=== PATIENT | female | born 1980 | race Caucasian/White ===

== ENCOUNTER 2018-04-22 10:16 | Day surgery (SDC) | payer OTHER ==
[~2018-04-22 10:16] MED LIST: LIDOCAINE 2% (SDV) 5 ML INJ
[2018-04-22 10:58] LABS: ADD MAN DIFF? NO
[2018-04-22 11:01] LABS: WHITE BLOOD COUNT 9.4 10^3/ul (4.8-10.8)
[2018-04-22 11:01] LABS: BASOPHILS % 0.3 % (0.0-2.0); EOSINOPHILS # 0.1 10^3/ul (0.0-0.5); EOSINOPHILS % 0.7 % (0.0-7.0); HEMATOCRIT 39.8 % (37.0-47.0); HEMOGLOBIN 13.1 g/dl (12.0-16.0); LYMPHOCYTES # 2.2 10^3/ul (0.8-2.9); LYMPHOCYTES % 23.8 % (15.0-51.0); MEAN CORPUSCULAR HEMOGLOBIN 28.1 pg (29.0-33.0); MEAN CORPUSCULAR HGB CONC 32.9 g/dl (32.0-37.0); MEAN CORPUSCULAR VOLUME 85.4 fl (82.0-101.0); MEAN PLATELET VOLUME 10.8 fl (7.4-10.4); MONOCYTE # 0.7 10^3/ul (0.3-0.9); MONOCYTES % 7.5 % (0.0-11.0); NEUTROPHIL # 6.3 10^3/ul (1.6-7.5); NEUTROPHILS % 67.4 % (39.0-77.0); PLATELET COUNT 293 10^3/UL (140-415); RED BLOOD COUNT 4.66 10^6/ul (4.20-5.40); RED CELL DISTRIBUTION WIDTH 13.2 % (11.5-14.5)
[2018-04-22 11:05] LABS: ADD UMIC NO; UR ASCORBIC ACID NEGATIVE (NEGATIVE); UR BACTERIA FEW /HPF (NONE SEEN); UR BILIRUBIN (Dip) NEGATIVE (NEGATIVE); UR BLOOD (Dip) NEGATIVE (NEGATIVE); UR CLARITY SLIGHTLY CLOUDY (CLEAR); UR COLOR YELLOW (YELLOW); UR GLUCOSE (Dip) NEGATIVE (NEGATIVE); UR KETONES (Dip) NEGATIVE (NEGATIVE); UR LEUKOCYTE ESTERASE (Dip) NEGATIVE Leu/ul (NEGATIVE); UR MUCUS FEW /HPF (NONE SEEN); UR NITRITE (Dip) NEGATIVE (NEGATIVE); UR RBC 1 /HPF (0-5); UR SPECIFIC GRAVITY (Dip) 1.015 (1.003-1.030); UR SQUAMOUS EPITHELIAL CELL FEW /HPF (FEW); UR TOTAL PROTEIN (Dip) NEGATIVE (NEGATIVE); UR UROBILINOGEN (Dip) NEGATIVE (NEGATIVE); UR WBC 1 /HPF (0-5)
[2018-04-22 11:19] LABS: INR 0.92; PROTIME 12.4 Sec (11.9-14.9)
[2018-04-22 11:20] LABS: ALANINE AMINOTRANSFERASE 43 IU/L (13-69); ALBUMIN 3.5 g/dl (3.3-4.9); ALBUMIN/GLOBULIN RATIO 0.89; ALKALINE PHOSPHATASE 109 IU/L (42-121); ANION GAP 11 (8-16); ASPARTATE AMINO TRANSFERASE 29 IU/L (15-46); BILIRUBIN,INDIRECT 1.4 mg/dl (0-1.1); BILIRUBIN,TOTAL 1.4 mg/dl (0.2-1.3); BLOOD UREA NITROGEN 9 mg/dl (7-20); CALCIUM 8.8 mg/dl (8.4-10.2); CARBON DIOXIDE 24 mmol/L (21-31); CHLORIDE 108 mmol/L (97-110); CREATININE 0.54 mg/dl (0.44-1.00); GLUCOSE 86 mg/dl (70-220); PARTIAL THROMBOPLASTIN TIME 28.7 Sec (23.0-35.0); POTASSIUM 3.9 mmol/L (3.5-5.1); SODIUM 139 mmol/L (135-144); TOTAL PROTEIN 7.4 g/dl (6.1-8.1)
[2018-04-22] MEDS ORDERED: PROPOFOL 100 ML (13:02)
[2018-04-22] MEDS ORDERED: ONDANSETRON 4 MG INJ (13:02)
[2018-04-22] MEDS ORDERED: DEXAMETHASONE 4 MG/ML 1 ML INJ (13:02)
[2018-04-22] MEDS: BUPIVACAINE 0.5%/EPI (SDV) 30 ML INJ (13:29)
[2018-04-22] MEDS ORDERED: ACETAMINOPHEN 1000MG/100ML IV 100 ML (13:32)
[2018-04-22] MEDS ORDERED: ROCURONIUM 50 MG INJ (13:32)
[2018-04-22] MEDS ORDERED: SUGAMMADEX SODIUM 200 MG/2 ML VIAL IV (13:32)
[2018-04-22] MEDS ORDERED: CEFAZOLIN 1 GM INJ (13:32)
[2018-04-22] MEDS ORDERED: LACTATED RINGER'S 1,000 ML IV (13:41)
[2018-04-22] MEDS ORDERED: LABETALOL HCL 20MG INJ IV (14:00)
[2018-04-22] MEDS ORDERED: ALBUTEROL 0.083% (NEB) 2.5 MG/3 ML AMP HHN (14:00)
[2018-04-22] MEDS ORDERED: MIDAZOLAM 1 MG/ML 2 ML INJ IV (14:00)
[2018-04-22] MEDS ORDERED: hydrALAzine 20 MG INJ IV (14:00)
[2018-04-22] MEDS ORDERED: OXYCODONE/ACETAMINOPHEN (5/325) TAB PO ×2 (14:00)
[2018-04-22] MEDS ORDERED: ACETAMINOPHEN 325 MG TAB PO (14:00)
[2018-04-22] MEDS ORDERED: MEPERIDINE 25 MG INJ IV (14:00)
[2018-04-22] MEDS ORDERED: DIPHENHYDRAMINE 50 MG INJ IV (14:00)
[2018-04-22] MEDS ORDERED: EPHEDrine SULFATE 50 MG/5 ML SYG IV (14:00)
[2018-04-22] MEDS ORDERED: KETOROLAC 30 MG INJ IV ×2 (14:00)
[2018-04-22] MEDS ORDERED: IBUPROFEN 800 MG TAB GTB (14:00)
[2018-04-22] MEDS ORDERED: FENTAnyl 50 MCG/ML VIAL IV ×3 (14:00)
[2018-04-22] MEDS ORDERED: ONDANSETRON 4 MG INJ IV ×2 (14:00)
[2018-04-22] MEDS: IBUPROFEN 600 MG TAB PO (15:33)
== END 2018-04-22 16:17 | disposition home or self-care (01) ==
LOC: SDS 10:16
DX: Z30.2 Encounter for sterilization (principal); E66.9 Obesity, unspecified; Z68.38 Body mass index [BMI] 38.0-38.9, adult
CPT/HCPCS: 58670; 80053; 81001; 81003; 85025; 85610; 85730; 86850; 86900; 86901